=== PATIENT | female | born 1955 | race African-American/Black ===

== ENCOUNTER 2016-12-18 06:27 | Day surgery (SDC) | payer OTHER ==
[~2016-12-18] VITALS: Ht 152.4 cm; Wt 86.4 kg
[~2016-12-18 06:27] MED LIST: MIDAZOLAM HCL 2 MG/2 ML VIAL IVP ONE; PARO20TA24; PHEN100C4 PO; PHEN64.82 PO; PROPOFOL 1% 20 ML VIAL IVP ONE; SULF1TAB42 PO
[2016-12-18] MEDS ORDERED: RINGERS SOLUTION,LACTATED 500 ML IV ONE ×2 (06:30→06:36)
[2016-12-18] MEDS ORDERED: TETRACAINE HCL/PF 0.5% 4 ML OPHTHALMIC SOLUTION ONE (06:34)
[2016-12-18] MEDS ORDERED: CYCLOPENTOLATE HCL 1% 2 ML OPHTHALMIC SOLUTION ONE (06:35)
[2016-12-18] MEDS ORDERED: TROPICAMIDE 1% 2 ML OPHTHALMIC SOLUTION ONE (06:35)
[2016-12-18] MEDS ORDERED: FLURBIPROFEN SODIUM 0.03% 2.5 ML OPHTHALMIC SOLUTION ONE (06:35)
[2016-12-18] MEDS ORDERED: PHENYLEPHRINE HCL 2.5% 2 ML OPHTHALMIC SOLUTION ONE (06:35)
[2016-12-18] MEDS ORDERED: TETRACAINE HCL/PF 0.5% 4 ML OPHTHALMIC SOLUTION OD ONE (07:00)
[2016-12-18] MEDS ORDERED: ACETAMINOPHEN 325 MG TABLET PO PRN (07:00)
[2016-12-18] MEDS ORDERED: PHEN100C23 PO (07:11)
[2016-12-18] MEDS ORDERED: FERR-89 PO (07:11)
[2016-12-18] MEDS ORDERED: FURO20 PO (07:11)
[2016-12-18] MEDS ORDERED: PARO20TA24 PO (07:11)
[2016-12-18] MEDS ORDERED: ACET-48 PO (07:11)
[2016-12-18] MEDS ORDERED: PHEN32.43 PO (07:11)
[2016-12-18] MEDS ORDERED: OS500 PO (07:11)
[2016-12-18] MEDS ORDERED: LORA10TA7 PO (07:11)
[2016-12-18] MEDS: PHENYLEPHRINE HCL 2.5% 2 ML OPHTHALMIC SOLUTION OD SCH ×3 (07:44→07:56)
[2016-12-18] MEDS: TROPICAMIDE 1% 2 ML OPHTHALMIC SOLUTION OD SCH ×3 (07:44→07:56)
[2016-12-18] MEDS: OFLOXACIN 0.3% 5 ML OPHTHALMIC SOLUTION OD SCH ×3 (07:44→07:56)
[2016-12-18] MEDS: FLURBIPROFEN SODIUM 0.03% 2.5 ML OPHTHALMIC SOLUTION OD SCH ×3 (07:44→07:56)
[2016-12-18] MEDS: CYCLOPENTOLATE HCL 1% 2 ML OPHTHALMIC SOLUTION OD SCH ×3 (07:49→08:02)
[2016-12-18] MEDS ORDERED: FentaNYL CITRATE-PF 100 MCG/2 ML VIAL ONE (09:36)
[2016-12-18] MEDS ORDERED: FentaNYL CITRATE-PF 100 MCG/2 ML VIAL IVP PRN (09:45)
[2016-12-18] MEDS ORDERED: 0.9% SODIUM CHLORIDE 10 ML SYRINGE IVP ONE (10:22)
[2016-12-18] MEDS ORDERED: AcetaZOLAMIDE SODIUM 500 MG VIAL IVP ONE (10:25)
[2016-12-18] MEDS ORDERED: OXYGEN THERAPY IH SCH (20:00)
== END 2016-12-18 11:05 | disposition home or self-care (01) ==
LOC: SURGERY 06:27
PROVIDERS: ATTEND Ophthalmology
DX: H25.11 Age-related nuclear cataract, right eye (principal); G40.909 Epilepsy, unspecified, not intractable, without status epilepticus; M19.90 Unspecified osteoarthritis, unspecified site; F32.9 Major depressive disorder, single episode, unspecified; F17.220 Nicotine dependence, chewing tobacco, uncomplicated; E66.3 Overweight; Z90.49 Acquired absence of other specified parts of digestive tract; Z86.73 Personal history of transient ischemic attack (TIA), and cerebral infarction without residual deficits
CPT/HCPCS: 66982; 67005; 93005; C1780; J3010; J7120; J2250; J2704